=== PATIENT | male | born 1995 | race Two or more races ===

== ENCOUNTER 2021-06-20 11:43 | Emergency (ER) | payer SELFPAY ==
[~2021-06-20] VITALS: Ht 172.7 cm; Wt 82.6 kg
--- NOTE | 2021-06-20 11:47 | NUR ---
BANDAR Meek FROM [facility],[employer] CALLED THEM AFTER HE WAS FOUND LAYING IN THE SIDEWALK, DENIES ANY PAIN DISCOMFORT, CONNECTED TO MONITOR
[2021-06-20 12:13] LABS: BASOPHILS % (AUTO) 0.8 % (0.0-2.0); EOSINOPHILS % (AUTO) 1.1 % (0.0-6.0); HEMATOCRIT 47 % (39-51); HEMOGLOBIN 16.2 g/dL (13.5-17.5); LYMPHOCYTES # (AUTO) 1.5 K/uL (0.8-4.8); LYMPHOCYTES % (AUTO) 34.5 % (20.0-44.0); MEAN CORPUSCULAR HGB CONC 34 g/dl (31.0-36.0); MEAN CORPUSCULAR VOLUME 88 fL (80-96); MONOCYTES # (AUTO) 0.2 K/uL (0.1-1.30); MONOCYTES % (AUTO) 5.8 % (2.0-12.0); NEUTROPHILS # (AUTO) 2.5 K/uL (1.8-8.9); NEUTROPHILS % (AUTO) 57.8 % (43.0-81.0); PLATELET COUNT (AUTO) 201 K/uL (150-450); WHITE BLOOD COUNT (AUTO) 4.2 K/uL (4.3-11.0)
[2021-06-20 12:39] LABS: ALANINE AMINOTRANSFERASE 95 U/L (12-78); ALBUMIN 4.1 g/dL (3.4-5.0); ALCOHOL, BLOOD 388 mg/dL (0-0); ALKALINE PHOSPHATASE 91 U/L (46-116); ASPARTATE AMINOTRANSFERASE 77 U/L (15-37); BILIRUBIN,DIRECT 0.1 mg/dL (0.0-0.2); BILIRUBIN,TOTAL 0.4 mg/dL (0.2-1.0); CALCIUM, SERUM 7.7 mg/dL (8.5-10.1); CARBON DIOXIDE 22 mmol/L (21-32); GLUCOSE 112 mg/dL (74-106); TOTAL PROTEIN, SERUM 7.8 g/dL (6.4-8.2); UREA NITROGEN, BLOOD 8 mg/dL (7-18)
[2021-06-20 12:47] LABS: ACETAMINOPHEN < 2 ug/ml (10-30)
[2021-06-20 12:56] LABS: CHLORIDE 107 mmol/L (98-107); POTASSIUM 3.4 mmol/L (3.5-5.1); SODIUM SERUM 144 mmol/L (136-145)
--- NOTE | 2021-06-20 13:17 | NUR ---
UNABLE TO PROVIDE URINE AT THIS TIME
[2021-06-20 13:43] VITALS: BP 122/73
--- NOTE | 2021-06-20 13:43 | NUR ---
Patient discharged to home in stable condition. Written and verbal after care instructions given. Patient verbalizes understanding of instruction.
== END 2021-06-20 13:44 | disposition home or self-care (01) ==
LOC: ER 11:45
DX: F10.129 Alcohol abuse with intoxication, unspecified (principal); Z60.2 Problems related to living alone; Y90.8 Blood alcohol level of 240 mg/100 ml or more
CPT/HCPCS: 36415; 80048-TC; 80076-TC; 85025-TC; G0480